=== PATIENT | female | born 1940 | race Caucasian/White ===

== ENCOUNTER → 2016-05-28 | Outpatient (CLI) | payer MEDICARE, OTHER ==
[2016-05-28 10:32] LABS: HEMOGLOBIN 12.1 gm/dl (12.3-15.3); RED BLOOD COUNT 4.15 M/UL (4.00-5.10); WHITE BLOOD COUNT 4.1 K/UL (4.5-11.0)
== END ==
LOC: LAB 09:02
PROVIDERS: Internal Medicine Hematology & Oncology
DX: D69.6 Thrombocytopenia, unspecified (principal)
CPT/HCPCS: 36415; 82565; 82607; 82746; 83615; 84520; 85025; 86235

== ENCOUNTER → 2016-05-29 | Outpatient (CLI) | payer MEDICARE, OTHER | LOC: CT 10:48 | DX: D69.6 Thrombocytopenia, unspecified (principal); K74.69 Other cirrhosis of liver; K76.6 Portal hypertension | CPT/HCPCS: 74160; J7050; Q9962 ==

== ENCOUNTER → 2016-06-09 | Outpatient (CLI) | payer MEDICARE, OTHER ==
[2016-06-09 11:17] LABS: HEMOGLOBIN 11.7 gm/dl (12.3-15.3); RED BLOOD COUNT 4.04 M/UL (4.00-5.10)
[2016-06-09 11:22] LABS: BUN/CREATININE RATIO 18 (0-10)
== END ==
LOC: LAB 09:20
PROVIDERS: Internal Medicine Gastroenterology
DX: K74.60 Unspecified cirrhosis of liver (principal); E03.8 Other specified hypothyroidism
CPT/HCPCS: 36415; 80053; 80074; 82103; 82728; 82784; 83540; 83550; 84443; 85025; 85610; 86039; 86235; 86255; 86704; 86706; 87517

== ENCOUNTER → 2016-11-20 | Outpatient (CLI) | payer MEDICARE, OTHER ==
[2016-11-20 11:12] LABS: RED BLOOD COUNT 4.17 M/UL (4.00-5.10); WHITE BLOOD COUNT 3.9 K/UL (4.5-11.0)
== END ==
LOC: LAB 09:30
PROVIDERS: Internal Medicine Gastroenterology
DX: K74.60 Unspecified cirrhosis of liver (principal)
CPT/HCPCS: 36415; 80053; 85025; 85610